=== PATIENT | male | born 1955 | race Caucasian/White ===

== ENCOUNTER 2018-07-02 10:50 | Emergency (ER) | payer SELFPAY ==
--- NOTE | 2018-07-02 11:00 | ED.PDOC ---
History of Present Illness - General Time Seen by Provider: 07/02/18 10:57 Source: patient, RN notes reviewed Additional Information: 62 YEAR OLD WHITE MALE PRESENTS TO THE ED WITH COMPLAINTS OF ANXIETY AND RESTLESSNESS HE IS [place] HAS NOT ESTABLISHED A PCP YET HE RAN OUT OF HIS SCRIPT FOR CLONAZEPAM ( 1 MG PO BID ) LAST WEEK HE ALSO HAS HISTORY OF ADHD ON [employer] AND [employer] HE HAS BEEN ON MEDICATIONS FOR 20 YEARS - History of Present Illness Timing/Duration: week Severity: moderate Associated Symptoms: anxiety, impaired concentration Home Medications: Ambulatory Orders Clonazepam 1 mg PO BID #30 tab 07/02/18 Review of Systems - Review of Systems Constitutional: States: no symptoms reported EENTM: States: no symptoms reported Respiratory: States: no symptoms reported Cardiology: States: no symptoms reported Gastrointestinal/Abdominal: States: no symptoms reported Genitourinary: States: no symptoms reported Skin: States: no symptoms reported Neurological: States: no symptoms reported Endocrine: States: no symptoms reported Hematologic/Lymphatic: States: no symptoms reported Physical Exam - Physical Exam General Appearance: Anxious Eyes, Ears, Nose, Throat Exam: PERRL/EOMI, normal ENT inspection, TMs normal, pharynx normal Neck: non-tender, full range of motion, supple, normal inspection Respiratory: chest non-tender, lungs clear, normal breath sounds Cardiovascular/Chest: normal peripheral pulses, regular rate, rhythm, no edema, no gallop, no JVD, no murmur Peripheral Pulses: radial,right: 2+ Gastrointestinal/Abdominal: normal bowel sounds, non tender, soft Neurological: alert, normal mood/affect, 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
[2018-07-02 11:28] VITALS: TEMP 97.3
[2018-07-02 11:52] VITALS: BP 124/59; O2SAT 98
== END 2018-07-02 11:44 | disposition home or self-care (01) ==
LOC: ER 10:50
DX: F41.9 Anxiety disorder, unspecified (principal); F90.9 Attention-deficit hyperactivity disorder, unspecified type; Z79.899 Other long term (current) drug therapy

== ENCOUNTER 2018-07-04 13:22 | Emergency (ER) | payer SELFPAY ==
[2018-07-04] MEDS ORDERED: LORazepam 0.5 MG TAB PO ONE (13:54)
[2018-07-04] MEDS ORDERED: MIRTAZAPINE 15 MG TAB PO ONE (13:54)
--- NOTE | 2018-07-04 14:13 | ED.PDOC ---
History of Present Illness - General Chief Complaint: Behavioral / Psych Stated Complaint: Pt states anxiety potentially r/t to medwithdrawal Time Seen by Provider: 07/04/18 13:27 Source: patient Exam Limitations: no limitations - History of Present Illness Initial Comments: the patient is a 62-year-old male presenting to the emergency room secondary to feelings of severe anxiety. The patient has been hospitalized before for psychiatric issues and then hasbeen off of most of his medications for several weeks. He was written for clonazepam here the other day. He has been taking this but it has not been controlling his symptoms. He reports that he has had difficult time finding a psychiatrist to write his routine medications. He has not homicidal or suicidal. He is not hallucinating. He is very anxious. He has been sleeping poorly. Timing/Duration: unsure Severity: moderate Improving Factors: nothing Worsening Factors: nothing Associated Symptoms: denies symptoms Allergies/Adverse Reactions: Allergies NO KNOWN ALLERGY Allergy (Verified 07/04/18 13:47) Home Medications: Ambulatory Orders Clonazepam 1 mg PO BID #30 tab 07/02/18 Amphetamine-Dextroamphetamine [Adderall] 1 tab PO DAILY 07/04/18 Clonidine HCl 0.1 mg PO TID 07/04/18 Lisdexamfetamine Dimesylate [Vyvanse] 70 mg PO DAILY 07/04/18 Mirtazapine [Remeron] 30 mg PO QPM #14 tab 07/04/18 Review of Systems - Review of Systems Constitutional: States: no symptoms reported EENTM: States: no symptoms reported Respiratory: States: no symptoms reported Cardiology: States: no symptoms reported Gastrointestinal/Abdominal: States: no symptoms reported Genitourinary: States: no symptoms reported Musculoskeletal: States: no symptoms reported Skin: States: no symptoms reported Neurological: States: anxiety, tremors All other Systems: No Change from Baseline Past Medical History (General) - Patient Medical History Hx Stroke: No Hx of COPD: No Hx Congestive Heart Failure: No Hx Diabetes: No Hx Cancer: Yes - Skin - MOHS procedure 2018 Surgical History: other - Vaccination History Hx Tetanus, Diphtheria Vaccination: Yes Hx Influenza Vaccination: No Hx Pneumococcal Vaccination: No - Social History Hx Tobacco Use: Yes Hx Alcohol Use: No Hx Substance Use: No Hx Depression: Yes - Mental health issues Family Medical History - Family History Father Family History: No Known Living Status: Unknown Physical Exam - Physical Exam General Appearance: Alert, Anxious Eye Exam: bilateral normal Ears, Nose, Throat: hearing grossly normal, normal pharynx Neck: non-tender Respiratory: no respiratory distress, no accessory muscle use Cardiovascular/Chest: normal peripheral pulses, no edema Peripheral Pulses: radial,right: 2+, radial,left: 2+ Gastrointestinal/Abdominal: non tender, soft Rectal Exam: deferred Extremity: non-tender, normal inspection, no pedal edema, normal capillary refill Neurologic: 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 Skin Exam: normal color Comments: Vital Signs - 24 hr 07/04/18 13:30 Temperature 98.1 F Pulse Rate [ 102 H Left Radial] Respiratory 20 Rate Blood Pressure 131/100 [Left Arm] O2 Sat by Pulse 98 Oximetry Progress - Progress Progress: 07/04/18 14:12 the patient is a 62-year-old male presenting to the emergency room s econdary to anxiety. The patient is off of numerous psychiatric medications due to difficulty in finding a psychiatrist to continue his care. He does have clonazepam to continue. He also apparently has a refill on his clonidine which he does need to get refilled. I will go ahead and write him for 2 weeks of Remeron 30 mg at night. He is given contact information for [facility] to contact them Friday to get set up an appointment as soon as possible. It is possible he may be having some withdrawal from coming off of the long-term medical amphetamine. He does need to obtain a new primary care doctor. ER warnings were given. Departure - Departure Clinical Impression: Anxiety disorder Qualifiers: Anxiety disorder type: other mixed anxiety disorder Qualified Code(s): F41.3 - Other mixed anxiety disorders Disposition: Discharge to Home or Self Care Condition: Fair Departure Forms: ED Discharge - Pt. Copy, Patient Portal Self Enrollment Instructions: Panic Disorder Diet: regular diet Activity: increase activity as tolerated Prescriptions: Mirtazapine [Remeron] 30 mg PO QPM #14 tab Home Medications: Ambulatory Orders Clonazepam 1 mg PO BID #30 tab 07/02/18 Amphetamine-Dextroamphetamine [Adderall] 1 tab PO DAILY 07/04/18 Clonidine HCl 0.1 mg PO TID 07/04/18 Lisdexamfetamine Dimesylate [Vyvanse] 70 mg PO DAILY 07/04/18 Mirtazapine [Remeron] 30 mg PO QPM #14 tab 07/04/18 Additional Instructions: the patient is a 62-year-old male presenting to the emergency room secondary to anxiety. The patient is off of numerous psychiatric medications due to difficulty in finding a psychiatrist to continue his care. He does have clonazepam to continue. He also apparently has a refill on his clonidine which he does need to get refilled. I will go ahead and write him for 2 weeks of Remeron 30 mg at night. He is given contact information for [facility] to contact them Friday to get set up an appointment as soon as possible. It is possible he may be having some withdrawal from coming off of the long-term medical amphetamine. He does need to obtain a new primary care doctor. ER warnings were given.
[2018-07-04 14:32] VITALS: BP 111/81; TEMP 96.3; O2SAT 96
== END 2018-07-04 14:32 | disposition home or self-care (01) ==
LOC: ER 13:22
DX: F41.3 Other mixed anxiety disorders (principal); F32.9 Major depressive disorder, single episode, unspecified; Z79.899 Other long term (current) drug therapy; Z85.828 Personal history of other malignant neoplasm of skin; Z87.891 Personal history of nicotine dependence

== ENCOUNTER → 2018-12-15 | Outpatient (CLI) | payer MEDICARE ==
--- NOTE | 2018-12-15 13:04 | RAD ---
EXAM DESCRIPTION: Chest,2 Views CLINICAL HISTORY: ESSENTIAL HYPERTENSION COMPARISON: None TECHNIQUE: PA/lateral FINDINGS: There is no acute appearing cardiac or pulmonary abnormality. Heart size is normal with normal pulmonary vascularity. No pleural effusion or pneumothorax. Lungs are clear with no consolidating infiltrate. Lateral view shows intact sternum and T-spine. IMPRESSION: No acute process is identified in the chest. Electronically signed by: Jorge L Burton MD 12/15/2018 1:03 PM CDT
== END ==
LOC: RAD 12:09
PROVIDERS: ATTEND Family Medicine
DX: I10 Essential (primary) hypertension (principal)

== ENCOUNTER → 2019-10-21 | Outpatient (CLI) | payer MEDICARE ==
--- NOTE | 2019-10-21 17:13 | US ---
EXAM DESCRIPTION: Venous,Lower Extremity RT: ULTRASOUND. CLINICAL HISTORY: SWELLING IN LOWER LEG RIGHT COMPARISON: None Available. TECHNIQUE: Castaneda-scale and doppler sonographic evaluation of the deep venous system of the right lower extremity. FINDINGS: Doppler evaluation shows normal color flow and normal phasicity and augmentation of the right common femoral vein, femoral vein, popliteal vein, greater saphenous vein, junction with the CFV. Also normal color flow and normal phasicity and augmentation of the peroneal, and posterior tibial vein. The right lower extremity deep veins were completely compressible; normal occlusion with transducer pressure. Castaneda-scale survey showed no echogenic thrombus within these veins. Multiple large lymph nodes abutting the right inguinal canal do not appear reactive. No fluid collection, no cyst, and no calcifications. IMPRESSION: 1. Duplex ultrasound evaluation of the right lower extremity deep venous system showing no evidence of thrombosis. 2. Enlarged lymph nodes that do not appear reactive abutting the right inguinal canal. Electronically signed by: Kendrick Good MD 10/21/2019 5:12 PM CDT
== END ==
LOC: US 08:38
PROVIDERS: ATTEND Nurse Practitioner Family
DX: R22.41 Localized swelling, mass and lump, right lower limb (principal)